=== PATIENT | female | born 1985 | race Caucasian/White ===

== ENCOUNTER 2017-11-12 21:20 | Emergency (ER) | payer OTHER, BC ==
[2017-11-12 21:25] VITALS: BP 151/107
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
== END 2017-11-12 21:35 | disposition home or self-care (01) ==
LOC: ER 21:33
DX: S29.012A Strain of muscle and tendon of back wall of thorax, initial encounter (principal); S16.1XXA Strain of muscle, fascia and tendon at neck level, initial encounter; V43.52XA Car driver injured in collision with other type car in traffic accident, initial encounter; S40.012A Contusion of left shoulder, initial encounter
CPT/HCPCS: 99281

== ENCOUNTER → 2018-05-10 | Outpatient (CLI) | payer BC ==
[~2018-05-10] MED LIST: IBUP100T46 PO
== END ==
LOC: LAB 10:41
PROVIDERS: ATTEND Obstetrics & Gynecology
DX: N80.9 Endometriosis, unspecified (principal)
CPT/HCPCS: 36415; 82670; 83001; 83002; 83520; 84146; 84443

== ENCOUNTER → 2018-05-15 | Outpatient (CLI) | payer BC ==
--- NOTE | 2018-05-15 09:29 | RADIOLOGY IMAGING REPORT ---
FACILITY: [facility] [place] PATIENT NAME: Cary Patel : 1985 MR: [id number] V: [id number] EXAM DATE: ORDERING PHYSICIAN: RADHA TEJADA TECHNOLOGIST: Location: [facility] Patient: Cary Patel : 1985 Visit/Account:[id number] Date of Sevice: 05/15/2018 [facility] [place] TRANVAGINAL NON-OB HISTORY: ENDOMETRIOSIS, UNSPECIFIED with bilateral pelvic pain TECHNIQUE: Transvaginal ultrasound pelvis. COMPARISON: None. FINDINGS: Uterus: ; 7.6 cm length x 3.4 cm AP x 5.4 cm transverse. Myometrium: Unremarkable. Endometrium: Unremarkable; double thickness 4.9 mm. Cervix: Grossly negative. Ovaries: Right - 8.25 x 5.72 x 6.93 cm. There is a large homogeneous well-circumscribed hypoechoic mass measuring 6.2 x 7.1 x 5.2 cm with no internal vascularity and may represent a large hemorrhagic cyst Left - 8.25 x 4.4 x 6.5 cm. There is a large 5.7 x 7.1 x 4.3 cm cyst without septations Blood flow is documented in each ovary by duplex Doppler ultrasound. Adnexa: As above. Free pelvic fluid: Mild. IMPRESSION: Bilaterally enlarged ovaries with a 7.1 cm well-circumscribed hypoechoic mass with no internal vascul arity in the right ovary which may represent a large hemorrhagic cyst. Also noted is a 7.1 cm cyst i n the left ovary without septations Mild amount of free pelvic fluid Report Dictated By: Sandy Pierson MD at 05/15/2018 8:59 AM Report E-Signed By: Sandy Pierson MD at 05/15/2018 9:25 AM WSN:[email or web address]
== END ==
LOC: US 08:02
PROVIDERS: ATTEND Obstetrics & Gynecology
DX: Z02.9 Encounter for administrative examinations, unspecified (principal)

== ENCOUNTER 2018-07-06 19:54 | Emergency (ER) | payer BC ==
--- NOTE | 2018-07-06 20:18 | ER Report ---
History and Physical Time Seen By MD: 20:18 Hx. of Stated Complaint: PATIENT STATES THAT SHE WAS DEEP CLEANING HER HOUSE, LATER ON SHE STARTED HAVING A HARD TIME TAKING A DEEP BREATH HPI/ROS CHIEF COMPLAINT: Short of breath HISTORY OF PRESENT ILLNESS: This is a 33-year-old female. She is having shortnes s of breath tonight. This started after doing some deep cleaning at home. This has happened in the past with similar activities. She has no history of asthma but does get problems with this kind of activity as well as when she gets sick seems to get a worse bronchitis. She has used albuterol in the past which has helped with this type of symptom. She just feels like she can't get a full breath at this time. Chest feels tight. No pain. No fevers or chills. Has not been ill otherwise. Allergies: Coded Allergies: almond (Verified Allergy, Unknown, 11/12/17) HIVES ketorolac (Verified Adverse Reaction, Unknown, 11/12/17) NAUSEATED Home Meds Reported Medications Ibuprofen (IBUPROFEN) 100 Mg Tab.chew, 5 TAB PO PRN for PAIN, TAB.CHEW 04/28/18 Reviewed Nurses Notes: Yes Smoking Status: Never Smoker Hx Substance Use Disorder: No Hx Alcohol Use: No Constitutional Vital Sign - Last 24 Hours 07/06/18 07/06/18 07/06/18 07/06/18 20:06 20:06 20:24 20:30 Temp 98.2 Pulse 101 93 Resp 19 B/P (MAP) 146/93 146/93 (110) 115/90 (98) Pulse Ox 94 95 O2 Delivery Room Air 07/06/18 07/06/18 07/06/18 07/06/18 20:37 20:37 20:43 20:54 Pulse 82 92 95 Resp 16 16 Pulse Ox 90 92 O2 Delivery Room Air 07/06/18 21:00 B/P (MAP) 128/83 (98) Physical Exam General Appearance: Alert, no acute distress. Eyes: Pupils equal and round no injection. ENT: Normal oral mucosa. Moist mucous membranes. Normal appearing posterior oropharynx Respiratory: Lungs have wheezing on expiration, but otherwise good air movement. No rales or rhonchi noted Cardiac: regular rate and rhythm, normal peripheral perfusion Skin: No rashes DIFFERENTIAL DIAGNOSIS: After history and physical exam differential diagnosis was considered for patient with some wheezing on expiration and feeling of shortness of breath. It sounds like she has a history of reactive airway disease with different allergens or chemicals. Medical Decision Making ED Course/Re-evaluation ED Course Improved with albuterol nebulizer. Lungs are clear and good air movement after this. We provided her with an albuterol inhaler. Should things worsen she should return for reevaluation. No labs or imaging required at this time. She might consider follow-up with primary care or pulmonology for pulmonary function testing. Decision to Disposition Date: Jul 06, 2018 Decision to Disposition Time: 21:01 Depart Departure Latest Vital Signs Vital Signs Date Time Temp Pulse Resp B/P (MAP) Pulse Ox O2 Delivery O2 Flow Rate FiO2 07/06/18 21:00 128/83 (98) 07/06/18 20:54 95 92 07/06/18 20:43 16 07/06/18 20:37 Room Air 07/06/18 20:06 98.2 Impression: Primary Impression: Reactive airway disease that is not asthma Condition: Improved Disposition: HOME OR SELF-CARE Referrals: RADHA TEJADA MD (PCP) Patient Instructions: Reactive Airways Disease (ED) Additional Instructions: Consider follow-up with primary care and possible pulmonary function testing. Trial of a non-sedating anti-histamine with exposures that could cause breathing problems like this. Albuterol inhaler, 2 inhalations every 4 hours as needed for shortness of breath. Return to the ER for further treatment if worsening breathing. VIV OCONNOR MD Jul 06, 2018 20:18
[2018-07-06] MEDS ORDERED: ALBUTEROL 2.5 MG/3 ML NEB NEB ONE (20:25)
[2018-07-06 21:00] VITALS: BP 128/83
[2018-07-06] MEDS ORDERED: ALBUTEROL 8 GM INHALER INH ONE (21:00)
== END 2018-07-06 21:25 | disposition home or self-care (01) ==
LOC: ER 20:18
DX: J45.998 Other asthma (principal)
CPT/HCPCS: 94640; 99283; J7613

== ENCOUNTER → 2018-11-21 | Outpatient (CLI) | payer OTHER ==
[2018-11-21 11:33] LABS: PLATELET COUNT, AUTOMATED 277 K/uL (150-450)
== END ==
LOC: LAB 11:04
PROVIDERS: ATTEND Nurse Practitioner Family
DX: Z01.812 Encounter for preprocedural laboratory examination (principal); N80.1 Endometriosis of ovary; N94.6 Dysmenorrhea, unspecified; N94.10 Unspecified dyspareunia
CPT/HCPCS: 36415; 81001; 84702; 85025